=== PATIENT | female | born 1990 | race Caucasian/White ===

== ENCOUNTER 2018-11-27 00:12 | Emergency (ER) | payer OTHER ==
[2018-11-27 00:22] VITALS: BP 141/97
== END 2018-11-27 01:11 | disposition left against medical advice (07) ==
LOC: ED 00:12
DX: M54.9 Dorsalgia, unspecified (principal); Z53.21 Procedure and treatment not carried out due to patient leaving prior to being seen by health care provider
CPT/HCPCS: 99282